=== PATIENT | male | born 1955 | race African-American/Black ===

== ENCOUNTER 2017-01-15 17:23 | Emergency (ER) | payer MEDICAID ==
[~2017-01-15] VITALS: Ht 172.7 cm; Wt 69.1 kg
[2017-01-15] MEDS ORDERED: SODIUM CHLORIDE FLUSH 10ML SYR IVF ONE (19:30)
[2017-01-15] MEDS ORDERED: SODIUM CHLORIDE 0.9% 1,000ML IVBOLUS ONE (19:30)
[2017-01-15 19:31] LABS: HEMATOCRIT 47.3 % (39.2-51.8); HEMOGLOBIN 15.4 g/dL (13.7-18.0); WHITE BLOOD COUNT 11.1 x10^3/uL (3.4-10)
[2017-01-15 19:41] LABS: BLOOD UREA NITROGEN 12 mg/dL (7-18)
[2017-01-15 19:48] VITALS: BP 144/101
== END 2017-01-15 20:40 | disposition home or self-care (01) ==
LOC: ED 18:21
DX: R00.0 Tachycardia, unspecified (principal); F12.10 Cannabis abuse, uncomplicated; E11.9 Type 2 diabetes mellitus without complications; Z79.4 Long term (current) use of insulin
CPT/HCPCS: 36415; 80048; 82040; 82962; 85025; 93005; 96360; 99285; J7030

== ENCOUNTER 2018-10-25 06:33 | Emergency (ER) | payer MEDICAID ==
[2018-10-25] MEDS ORDERED: MORPHINE SULFATE 4 MG/ML, 1ML IVPush PRN (07:00)
[2018-10-25] MEDS ORDERED: SODIUM CHLORIDE 0.9% 1,000ML IVBOLUS ONE (07:00)
[2018-10-25] MEDS ORDERED: ONDANSETRON 2MG/ML, 2ML IVPush ONE (07:00)
--- NOTE | 2018-10-25 07:07 | NUR ---
pt laying on gurney with eyes closed, responds approp to staff, NAD, comfort measures provided, call light within reach.
[2018-10-25] MEDS ORDERED: INSULIN (07:10)
[2018-10-25] MEDS ORDERED: MORPHINE SULFATE 4 MG/ML, 1ML ONE (07:13)
[2018-10-25] MEDS ORDERED: ONDANSETRON 2MG/ML, 2ML ONE (07:13)
[2018-10-25 07:24] LABS: BASOPHILS # (AUTO) 0.01 x10^3/uL (0-0.1); BASOPHILS % (AUTO) 0 % (0-1); EOSINOPHILS # (AUTO) 0.09 x10^3/uL (0-0.4); EOSINOPHILS % (AUTO) 1 % (1-7); LYMPHOCYTES # (AUTO) 1.46 x10^3/uL (1-3.4); LYMPHOCYTES % (AUTO) 20 % (22-44); MD NO; MEAN CORPUSCULAR HEMOGLOBIN 28.9 pg (27.5-34.5); MEAN CORPUSCULAR HGB CONC 32.7 g/dL (33.2-36.2); MEAN CORPUSCULAR VOLUME 88.4 fL (81-97); MEAN PLATELET VOLUME 7.7 fL (7.4-10.4); MONOCYTES # (AUTO) 0.31 x10^3/uL (0.2-0.8); MONOCYTES % (AUTO) 4 % (2-9); NEUTROPHILS # (AUTO) 5.29 x10^3/uL (1.8-6.8); NEUTROPHILS % (AUTO) 74 % (42-75); PLATELET COUNT 250 x10^3/uL (130-400); RED BLOOD COUNT 4.09 x10^6/uL (4.38-5.82); RED CELL DISTRIBUTION WIDTH 14.9 % (9.4-14.8)
[2018-10-25 07:28] LABS: ALBUMIN 3.9 g/dL (3.4-5.0); ANION GAP 8 mmol/L (5-15); CALCIUM 9.5 mg/dL (8.5-10.1); CHLORIDE 96 mmol/L (98-107); CREATININE 2.06 mg/dL (0.7-1.3)
[2018-10-25 07:33] LABS: ALANINE AMINOTRANSFERASE 35 U/L (12-78); ALKALINE PHOSPHATASE 103 U/L (45-117); BILIRUBIN,TOTAL 0.8 mg/dL (0.2-1.0); TOTAL PROTEIN 7.4 g/dL (6.4-8.2)
--- NOTE | 2018-10-25 08:03 | NUR ---
pt continues laying on gurney with eyes closed, responds approp to staff, NAD, comfort measures provided, call light within reach.
[2018-10-25] MEDS ORDERED: MAALOX/HYOSCYAMINE/LIDOCAINE 45 ML BTL ONE (08:18)
[2018-10-25] MEDS ORDERED: MAALOX/HYOSCYAMINE/LIDOCAINE 45 ML BTL PO ONE (08:30)
--- NOTE | 2018-10-25 09:02 | NUR ---
pt laying on gurney with eyes closed, responds approp to staff, NAD, comfort measures provided, call light within reach.
--- NOTE | 2018-10-25 10:04 | NUR ---
pt continues laying on gurney with eyes closed, mostly sleeping, responds approp to staff, NAD, comfort measures provided, call light within reach.
[2018-10-25 10:59] VITALS: BP 111/74
--- NOTE | 2018-10-25 11:00 | NUR ---
pt laying on gurney with eyes closed, mostly sleeping, responds approp to staff, NAD, comfort measures provided, call light within reach.
--- NOTE | 2018-10-25 11:33 | NUR ---
Patient given verbal discharge instructions and they have confirmed that they understand the instructions but left prior to receiving written instructions/Rx. Patient ambulatory with steady gait.
== END 2018-10-25 11:33 | disposition home or self-care (01) ==
LOC: ED 09:14
DX: R11.2 Nausea with vomiting, unspecified (principal); R10.84 Generalized abdominal pain; E11.9 Type 2 diabetes mellitus without complications
CPT/HCPCS: 36415; 74176; 80053; 80307; 83690; 85025; 96361; 96374; 96375; 99284; J2270; J2405; J7030